=== PATIENT | female | born 1940 | race Caucasian/White ===

== ENCOUNTER 2016-10-13 08:01 | Emergency (ER) | payer MEDICARE, OTHER ==
[~2016-10-13 08:01] MED LIST: BAYER81 MG PO; CALTRATE-600 W1 EACH PO; DUONEB 2.5-0.5MG3 M1 AERO NEB; FISH OIL 1,2001 CAP PO; IMITREX50 MG PO; LEVOXYL75 MCG PO; MAXZIDE-25 MG1 UDTAB PO; MULTI VITAMIN1 EAC1 PO; NORCO 5/325 TAB1 TAB PO; NUCYNTA50 MG PO; PERCOCET 5/3251 TAB PO; ZOCOR40 MG PO; ZOFRAN4 MG PO
[2016-10-13] MEDS ORDERED: ZITHROMAX250 M1 PO (08:12)
[2016-10-13] MEDS ORDERED: TESSALON PERLE100 M1 PO (08:12)
[2016-10-13 08:57] LABS: BASO % 0.3 % (0-2); EOS % 0.1 % (0-7); HCT-HEMATOCRIT 37.7 % (34.0-49.0); HGB-HEMOGLOBIN 12.8 gm/dl (12.0-15.5); IMMATURE GRANULOCYTES ABSOLUTE 0.02 tho/cmm (0-0.03); IMMATURE GRANULOCYTES PERCENT 0.2 % (0-0.3); LYMPH % 9.7 % (20-45); LYMPH ABSOLUTE COUNT 0.9 tho/cmm (0.8-4.5); MCH (MEAN CORPUSCULAR HGB) 29.9 pg (28.0-32.0); MCV (MEAN CELL VOLUME) 88.1 fl (82.0-96.0); MEAN PLATELET VOLUME 10.6 cmc (9.4-12.4); MONO % 8.4 % (0-12); MONOCYTE ABSOLUTE COUNT 0.8 tho/cmm (0.0-1.2); NEUTROPHIL ABSOLUTE COUNT 7.8 tho/cmm (1.6-8.0); NEUTROPHIL-AUTOMATED 7.8 tho/cmm (1.6-8.0); NEUTROPHILS % 81.3 % (40-80); PLATELET COUNT 255 tho/cmm (150-450); RED BLOOD COUNT 4.28 mil/cmm (4.00-5.20); RED CELL DISTRIBUTION WIDTH 13.3 % (12.4-16.4); WHITE BLOOD COUNT 9.6 tho/cmm (4.0-10.0)
[2016-10-13 09:11] LABS: ALBUMIN 3.9 g/dl (3.5-5.0); ALKALINE PHOSPHATASE 43 U/L (33-138); ALT/SGPT 22 U/L (12-78); ANION GAP 13 mmol/L (0-20); AST/SGOT 29 U/L (10-40); BILIRUBIN,TOTAL 0.6 mg/dl (0-1.5); BLOOD UREA NITROGEN 9 mg/dl (6-24); CALCIUM 9.3 mg/dl (8.5-10.5); CARBON DIOXIDE-VENOUS 26 mmol/L (22-32); CHLORIDE 98 mmol/l (96-110); CREATININE 0.75 mg/dl (0.50-1.10); GLUCOSE 100 mg/dL (70-110); POTASSIUM 3.7 mmol/L (3.7-5.1); SODIUM 133 mmol/L (135-145); eGFR VALUE FOR BLACK 90 mL/Min
[2016-10-13 09:35] LABS: PROCALCITONIN <0.05 ng/ml (0.05-0.09)
[2016-10-13] MEDS ORDERED: ZOFRAN ODT4 MG PO (09:52)
[2016-10-13] MEDS ORDERED: CODEINE-GUAIFE120 M1 PO (09:52)
== END 2016-10-13 10:11 ==
LOC: EDMED 08:01
PROVIDERS: Emergency Medicine
DX: B34.9 Viral infection, unspecified (principal); I10 Essential (primary) hypertension; E78.5 Hyperlipidemia, unspecified; E03.9 Hypothyroidism, unspecified; Z88.2 Allergy status to sulfonamides; Z90.89 Acquired absence of other organs; Z98.890 Other specified postprocedural states; Z79.82 Long term (current) use of aspirin; Z79.890 Hormone replacement therapy; Z79.899 Other long term (current) drug therapy
CPT/HCPCS: J1885; J2405; J7030